=== PATIENT | female | born 2000 ===

== ENCOUNTER 2022-11-21 20:35 | Emergency (ER) | payer OTHER, SELFPAY ==
[2022-11-21 20:55] VITALS: BP 140/77; PULSE 71; RESP 16; TEMP 36.7; O2SAT 98; BMI 25.4
--- NOTE | 2022-11-21 21:14 | ED_ITS ---
HPI - General Adult General Chief complaint: Skin/Abscess/Foreign Body Stated complaint: Burn on Right Leg Time Seen by Provider: 11/21/22 21:00 Source: patient Mode of arrival: ambulatory Limitations: no limitations History of Present Illness HPI narrative: 21-year-old female with notable prior history of anxiety disorder presents to the emergency department for evaluation of a burn on her right leg. She reports that she was using a hot sugars scrub which is a cosmetic product 2 days ago. The product was hotter than anticipated and when she placed it on her leg, it caused immediate burning. She removed the product but noticed burn. She has been applying antibiotic ointment and keeping it covered but is worried about possible infection. She is not having fevers, she is not having pain in the area. She wonders if it is safe to dance in an upcoming recital. She is not using any immunosuppressants, has not taken any medication to help with pain. There is no drainage or surrounding redness. No recent surgeries. It is her past medical history is notable only for anxiety disorder. She takes Lexapro 20 mg once daily. No allergies. Denies any recent surgery. ROS is notable for the skin symptoms as above, otherwise denies any other skin, generalized or musculoskeletal complaints. Related Data Home Medications Medication Instructions Recorded Confirmed escitalopram oxalate 20 mg tablet 20 mg PO DAILY 11/21/22 11/21/22 Allergies Allergy/AdvReac Type Severity Reaction Status Date / Time No Known Drug Allergies Allergy Verified 11/21/22 20:58 Exam Const: Vital Signs, click to edit/add: Vital Signs - 24 hr 11/21/22 20:55 Temperature 98.1 F Pulse Rate [Left P ulse Oximeter] 71 Respiratory Rate 16 Blood Pressure [Ri ght Upper Arm] 140/77 H Pulse Oximetry 98 Oxygen Delivery Me thod Room Air Documenting provider has reviewed patient's vital signs: yes Common normals: no apparent distress General appearance: cooperative, comfortable and well kempt Eye: General eye: normal appearance of both eyes Resp: Common normals: normal respiratory effort Effort & inspection: able to speak in complete sentences Extremity: Other: Right knee and right ankle examined with normal range of motion and no signs of effusion or redness. Neuro: Common normals: moves all extremities and no focal motor deficits Psych: Appearance: well kempt Attitude: engaged Insight: insight good Judgement: judgment good Skin: Narrative: To second-degree banks of present on the right inner calf, linear in fashion. One is 8 cm long and comet shaped. At its maximum width it is 2 cm. The inferior lesion is 6 cm long and similarly shaved. At its widest, it is 1.5 cm in width. All are dermal thickness, no visible fatty tissue or muscles. There is no surrounding redness. No drainage. Course Vital Signs Vital signs: Initial Vital Signs Temperature 98.1 F 11/21/22 20:55 Temperature Source Temporal Artery Scan 11/21/22 20:55 Pulse Rate 71 11/21/22 20:55 Pulse Rhythm Regular 11/21/22 20:55 Respiratory Rate 16 11/21/22 20:55 Blood Pressure 140/77 H 11/21/22 20:55 Blood Pressure Mean 98 11/21/22 20:55 Blood Pressure Position Sitting 11/21/22 20:55 Pulse Oximetry 98 11/21/22 20:55 Oxygen Delivery Method Room Air 11/21/22 20:55 Vital Signs Temperature 98.1 F 11/21/22 20:55 Pulse Rate 71 11/21/22 20:55 Respiratory Rate 16 11/21/22 20:55 Blood Pressure 140/77 H 11/21/22 20:55 Pulse Oximetry 98 11/21/22 20:55 Oxygen Delivery Method Room Air 11/21/22 20:55 Temperature 98.1 F 11/21/22 20:55 Pulse Rate 71 11/21/22 20:55 Respiratory Rate 16 11/21/22 20:55 Blood Pressure 140/77 H 11/21/22 20:55 Pulse Oximetry 98 11/21/22 20:55 Oxygen Delivery Method Room Air 11/21/22 20:55 Medical Decision Making MDM Narrative Medical decision making narrative: No signs of significant infection. Patient counseled. Continue antibiotic ointment twice daily and keep covered for the next 3 weeks. Once new skin has grown in, may switch to scar therapy type of products. Avoid alcohol, hydrogen peroxide or other topical irritants. Try to avoid sunburns to the area for the next 6 months. Counseled on signs and symptoms of infection. Wound will be redressed by nurse and she will be discharged. Discharge Plan Discharge Clinical Impression: Second degree burn of lower leg Patient Disposition: Home, Self-Care Condition: Stable Instructions: Second-Degree Burn (ED) Additional Instructions: As we discussed, you have a second-degree burn on the leg. This will likely leave a minor scar. It will take about 3 weeks to heal. Your doing an excellent job applying antibiotic ointment twice daily and keeping it covered. Continue doing this until the new skin grows in. In about 3 weeks, you can start using bio-oil or Mederma scar therapy. Try to prevent sunburns. If you start noticing significant increase in redness, pus drainage or severe pain, this could be a sign of an infection and should be re-evaluated. Okay to use Tylenol and/or ibuprofen for any discomfort. Activity Level: No Restrictions Discharge Diet: Regular Prescriptions: No Action escitalopram oxalate 20 mg tablet 20 mg PO DAILY Stand Alone Forms: [employer] Info Instructions
--- NOTE | 2022-11-21 21:28 | ED.NURSE ---
wound care, abx ointment applied, covered with tegaderm and gauze over top per pt request.
== END 2022-11-21 21:32 | disposition home or self-care (01) ==
LOC: ED 21:23
PROVIDERS: Emergency Provider Family Medicine; PCP Family Medicine
DX: T24.201A Burn of second degree of unspecified site of right lower limb, except ankle and foot, initial encounter (principal); X08.8XXA Exposure to other specified smoke, fire and flames, initial encounter
CPT/HCPCS: 99282; 99283